=== PATIENT | male | born 1995 | race African-American/Black ===

== ENCOUNTER 2023-05-08 13:18 | Emergency (ER) | payer SELFPAY ==
--- NOTE | ~2023-05-08 | XR_ITS ---
XR chest 2V DATE: 05/08/2023 13:42 INDICATION: Palpitations TECHNIQUE: PA and lateral views COMPARISON: 10/03/2017 PA chest FINDINGS: Normal heart size. No hilar or mediastinal enlargement. No pulmonary infiltrate or consolid ation, pleural effusion or pulmonary vascular congestion or pneumothorax is detected. Included skeletal structures are unremarkable. IMPRESSION: Negative Reviewed, dictated and finalized at location L. IMPRESSION: Negative
--- NOTE | 2023-05-08 13:20 | ECG_ITS ---
Measurements Intervals [place] Rate: 71 P: 48 WA: 168 QRS: 48 QRSD: 84 T: -60 QT: 350 QTc: 382 Interpretive Statements SINUS RHYTHM LEFT VENTRICULAR HYPERTROPHY AND ST-T CHANGE BORDERLINE T WAVE ABNORMALITY- INF/LAT LEADS BORDERLINE ECG NO PREVIOUS ECG AVAILABLE FOR COMPARISON Electronically Signed On 05-08-2023 14:30:55 CDT by Florian Livingston D.O.
[2023-05-08 13:35] VITALS: BP 175/113; PULSE 88; RESP 18; TEMP 36.4; O2SAT 100
[2023-05-08 14:35] VITALS: BP 167/113; PULSE 68; RESP 14; O2SAT 100
[2023-05-08 14:59] LABS: Basophils Percent Auto 0.5 % (0.2-1.2); Eosinophils Absolute Auto 0.2 K/mm3 (0-0.3); Eosinophils Percent Auto 5.2 % (0-4.4); Hematocrit 42.7 % (42.0-52.0); Hemoglobin 14.7 g/dL (14.0-18.0); Immature Granulocyte Absolute 0.01 K/mm3 (0.00-0.031); Immature Granulocyte Percent A 0.2 % (0-0.5); Lymphocytes Absolute Auto 1.25 K/mm3 (0.9-3.2); Lymphocytes Percent Auto 30.8 % (18.3-44.2); Mean Corpuscular HGB Conc 34.4 g/dl (32-36); Mean Corpuscular Hemoglobin 29.7 pg (26-34); Mean Corpuscular Volume 86.3 fl (80-100); Mean Platelet Volume 9.3 fl (7.4-10.4); Monocytes Absolute Auto 0.4 K/mm3 (0.1-0.6); Monocytes Percent Auto 9.9 % (2.6-8.5); Neutrophils Absolute Auto 2.2 K/mm3 (1.3-6.7); Neutrophils Percent Auto 53.4 % (45.5-73.1); Platelet Count Result 257 k/mm3 (150-375); Red Blood Count 4.95 M/mm3 (4.6-6.20); Red Cell Distribution Width 12.8 % (11.5-14.5); White Blood Count 4.1 K/mm3 (4.5-10.0)
[2023-05-08 15:01] VITALS: BP 155/107; PULSE 72; RESP 20
[2023-05-08 15:10] LABS: Alanine Aminotransferase 114 U/L (6-50); Albumin Level 4.6 g/dL (3.5-5.1); Alkaline Phosphatase 68 U/L (38-126); Anion Gap 6 mmol/L (8-16); Aspartate Amino Transferase 112 U/L (17-59); Bilirubin,Total 0.8 mg/dL (0.2-1.3); Blood Urea Nitrogen 8 mg/dL (9-20); Calcium 9.6 mg/dL (8.4-10.2); Carbon Dioxide 29 mmol/L (22-30); Chloride 103 mmol/L (98-107); Estimated CRCL calculation 156 ml/min; Estimated Glomerular Filt Rate > 60; Glucose 145 mg/dL (65-110); Lipase 63 U/L (23-300); Potassium 3.6 mmol/L (3.4-5.0); Sodium 138 mmol/L (137-145)
[2023-05-08 15:21] LABS: Troponin I < 0.012 ng/mL (0.000-0.034)
[2023-05-08 15:31] LABS: Prothrombin Time 13.4 Seconds (11.1-14.7)
[2023-05-08 15:32] LABS: Partial Thromboplastin Time 29.2 Seconds (22.3-36.8)
[2023-05-08 16:01] VITALS: BP 157/110; PULSE 87; RESP 18; O2SAT 100
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
[2023-05-08] MEDS: LORazepam INJ (*CRX) 2 MG/ML VIAL 0.5 MG IV PUSH (16:25)
--- NOTE | 2023-05-08 16:29 | ECG_ITS ---
Measurements Intervals [place] Rate: 74 P: 50 W[place]: 178 QRS: 29 QRSD: 90 T: 29 QT: 348 QTc: 387 Interpretive Statements SINUS RHYTHM NONSPECIFIC T-WAVE ABNORMALITY- INF/LAT LEADS BASELINE ARTIFACT- I, II BORDERLINE ECG COMPARED TO ECG 05/08/2023 13:30:00 NO SIGNIFICANT CHANGES Electronically Signed On 05-08-2023 16:54:59 CDT by Florian Livingston D.O.
[2023-05-08 17:00] LABS: Troponin I < 0.012 ng/mL (0.000-0.034)
[2023-05-08 17:01] VITALS: BP 156/112; PULSE 78; RESP 13; O2SAT 100
[2023-05-08 18:00] VITALS: BP 180/110; PULSE 90; RESP 16; O2SAT 98
== END 2023-05-08 18:00 | disposition home or self-care (01) ==
PROVIDERS: Emergency Provider Emergency Medicine; Referring Provider Family Medicine
DX: R00.2 Palpitations (principal); I10 Essential (primary) hypertension; F17.290 Nicotine dependence, other tobacco product, uncomplicated; R94.31 Abnormal electrocardiogram [ECG] [EKG]; I51.7 Cardiomegaly
CPT/HCPCS: 36415; 71046; 80053; 83690; 84484; 85025; 85610; 85730; 93005; 96374; 99284; J2060

== ENCOUNTER 2023-07-20 15:08 | Outpatient (CLI) | payer OTHER, SELFPAY ==
[2023-07-20 16:45] LABS: Hepatitis C Virus Antibody Negative (Negative)
[2023-07-20 17:14] LABS: Chlamydia trachomatis NOT DETECTED (NOT DETECTE); Neisseria gonorrhoeae PCR NOT DETECTED (NOT DETECTE)
[2023-07-20 19:28] LABS: HIV 1/2 Ab P24 Ag 207
[2023-07-20 19:32] LABS: HIV 1/2 Ab P24 Ag Result Reactive (Negative)
[2023-07-20 19:33] LABS: HIVc Retest 1 193; HIVc Retest 2 184
[2023-07-22 04:17] LABS: Hepatitis B Core Ab Total NON-REACTIVE (NON-REACTIVE)
[2023-07-23 11:51] LABS: Rapid Plasma Reagin Reactive (NonReactive)
[2023-07-24 11:48] LABS: RPR Result REACTIVE (NON-REACTIVE)
[2023-07-24 18:58] LABS: RPR Titer 1:32
[2023-07-24 20:43] LABS: Herpes Simplex Type 1 DNA PCR NOT DETECTED; Herpes Simplex Type 2 DNA PCR NOT DETECTED
[2023-07-26 15:53] LABS: HIV 1 2 Ag Ab 4th Gen w Rflxs REPEATEDLY REACTIVE (NON-REACTIVE); HIV 1 Ab Chg Test Yes; HIV 1 Antibody POSITIVE (NEGATIVE); HIV 2 Ab Chg Test Yes; HIV 2 Antibody NEGATIVE (NEGATIVE)
== END 2023-07-20 15:09 | disposition home or self-care (01) ==
LOC: ANHLAB 15:10
PROVIDERS: PCP Clinical Nurse Specialist; Visit Provider Clinical Nurse Specialist
DX: N48.9 Disorder of penis, unspecified (principal); Z72.51 High risk heterosexual behavior; Z11.4 Encounter for screening for human immunodeficiency virus [HIV]
CPT/HCPCS: 36415; 86592; 86701; 86702; 86703; 86704; 86780; 86803; 87389; 87491; 87529; 87591; G0432

== ENCOUNTER 2024-02-16 22:15 | Emergency (ER) | payer OTHER, SELFPAY ==
[2024-02-16 22:16] VITALS: BP 136/88; PULSE 88; RESP 16; TEMP 36.7; O2SAT 98
--- NOTE | 2024-02-16 22:39 | ED_ITS ---
HPI - General Adult General Chief complaint: Unspecified Stated complaint: abx not working Time Seen by Provider: 02/16/24 22:39 Source: patient Mode of arrival: ambulatory Limitations: no limitations History of Present Illness HPI narrative: This is a 28-year-old male with PMH of HIV, recent diagnosis of syphilis who presents to the ED for antibiotics. He was seen at his internal medicine practice but they were avoiding penicillin due to national shortage. He was prescribed doxycycline twice over the last couple of months but states that it seems like the rash/lesions seemed to reappear. Otherwise states that he is doing well and has no complaints at this time. He is requesting penicillin shot today. States he is scheduled to have his CD4 count checked in February. He is taking his Biktarvy as prescribed. Related Data Home Medications ?Medication ?Instructions ?Recorded ?Confirmed ?Last Taken ?Type bictegravir 30 mg-emtricitabine tablet PO 02/04/24 02/04/24 Unknown History 120 mg-tenofovir alafenam 15 mg tablet (Biktarvy) Review of Systems Review of Systems: All systems as dictated in [facility] Surgical History Surgical History Crum teeth extracted Family History Family History Father Hypertension Depression Anxiety Mother Diabetes mellitus Grandparent Hypertension Grandparent Cerebrovascular accident Grandparent Colon cancer Grandparent Breast cancer Sibling Asthma Sibling Asthma Social History Social History Smoking status: Current every day smoker (vapes) Tobacco type: e-cigarettes/vaping Alcohol intake: current Alcohol use details: wine and shots, socially buy shots after work get wine and drink the whole bottle Substance use: current Substance use type: marijuana Other substance usage details: hasnt smoked in about 3 weeks Do You Feel Safe in your Home?: Yes Lack of Transportation: No Lack of Food: Never True Current Housing: I Have Housing Concerned About Future Housing: No Difficulty Paying Gas/Electric Bills: No Difficulty Paying for Meds: No Currently Unemployed: No Education: Associate Degree Difficulty w/ Childcare or Family Care: No Living arrangements: with roommate(s) Occupation/Education: occupation Additional occupation/education comments: [employer] Gender identity (if verbalized by the patient): Male Sexual Orientation (if Verbalized by the Patient): Lesbian, Pierre, or Homosexual Agree to blood products: Yes Exam Narrative: GENERAL: Well-appearing, well-nourished, and in no acute distress. HEAD: Normocephalic, atraumatic. EYES: PERRLA and EOMI. ENT: Nares clear, no rhinorrhea or epistaxis. Mucous membranes moist. Oropharynx without tonsillar hypertrophy exudate or other lesions. NECK: Supple. No adenopathy or masses. CHEST: No respiratory distress. Clear to auscultation. No wheezes rales or rhonchi HEART: Regular rate and rhythm. No murmur heard. Normal peripheral pulses. ABDOMEN: Soft, nontender, nondistended, normal active bowel sounds. MSK: Normal range of motion. No edema. SKIN: Warm, dry, no rash. NEURO: Alert and oriented x4. No focal deficits. PSYCH: Normal mood and affect. Course Vital Signs Vital signs: Vital Signs Temperature 98.0 F 02/16/24 22:16 Pulse Rate 88 02/16/24 22:16 Respiratory Rate 16 02/16/24 22:16 Blood Pressure 136/88 02/16/24 22:16 Pulse Oximetry 98 02/16/24 22:16 Temperature 98.0 F 02/16/24 22:16 Pulse Rate 88 02/16/24 22:16 Respiratory Rate 16 02/16/24 22:16 Blood Pressure 136/88 02/16/24 22:16 Pulse Oximetry 98 02/16/24 22:16 Medical Decision Making [facility] Narrative Medical decision making narrative: This is a 28-year-old male who is presenting for penicillin shot for previously diagnosed syphilis. Vitals are normal. He has no other complaints. Patient was given a shot of penicillin G today.. Since he is HIV positive we discussed that he will need to be seen again in 1 week for an additional injection. Patient will be discharged in stable condition. Supportive measures discussed and return precautions given. Patient is understanding and agreeable with plan for discharge with PCP follow-up. Vital Signs Vital Signs: Vital Signs Temperature 98.0 F 02/16/24 22:16 Pulse Rate 88 02/16/24 22:16 Respiratory Rate 16 02/16/24 22:16 Blood Pressure 136/88 02/16/24 22:16 Pulse Oximetry 98 02/16/24 22:16 Temperature 98.0 F 02/16/24 22:16 Pulse Rate 88 02/16/24 22:16 Respiratory Rate 16 02/16/24 22:16 Blood Pressure 136/88 02/16/24 22:16 Pulse Oximetry 98 02/16/24 22:16 Discharge Plan Discharge Clinical Impression: Acquired syphilis Patient Disposition: Home, Self-Care Condition: Stable Instructions: Antibiotic Form Additional Instructions: Your given shot of penicillin today for acquired syphilis. It is recommended to get a repeat dose of penicillin after 1 week. Please continue following up with your physicians on this issue. If you have any new or worsening symptoms please return to the ER for further evaluation. Patient Language: Armenian Prescriptions: No Action Biktarvy 30-120-15 mg tablet PO Patient Comments: Prescribed by SHERRE[facility]-Dr. Sow. Unsure of dosing. escitalopram oxalate [Lexapro] 10 mg tablet 10 mg PO DAILY Qty: 90 1RF Follow-up/Referrals: Brant Clement DO [Physician] - Time of Disposition: 23:12
[2024-02-16] MEDS: PENICILLIN G BENZATHINE 2,400,000 UNITS/4 ML SYRINGE 2400000 UNITS IM (23:25)
== END 2024-02-16 23:33 | disposition home or self-care (01) ==
PROVIDERS: Emergency Provider Physician Assistant; PCP Clinical Nurse Specialist
DX: A53.9 Syphilis, unspecified (principal); Z21 Asymptomatic human immunodeficiency virus [HIV] infection status; F17.290 Nicotine dependence, other tobacco product, uncomplicated; Z79.899 Other long term (current) drug therapy
CPT/HCPCS: 96372; 99283; J0561

== ENCOUNTER 2024-03-11 14:16 | Outpatient (CLI) | payer OTHER, SELFPAY ==
[2024-03-11 14:39] LABS: Eosinophils Absolute Auto 0.2 K/mm3 (0-0.3); Eosinophils Percent Auto 4.1 % (0-4.4); Hematocrit 43.1 % (42.0-52.0); Hemoglobin 14.6 g/dL (14.0-18.0); Immature Granulocyte Absolute 0.01 K/mm3 (0.00-0.031); Immature Granulocyte Percent A 0.2 % (0-0.5); Lymphocytes Absolute Auto 1.54 K/mm3 (0.9-3.2); Lymphocytes Percent Auto 36.9 % (18.3-44.2); Mean Corpuscular HGB Conc 33.9 g/dl (32-36); Mean Corpuscular Hemoglobin 31.1 pg (26-34); Mean Corpuscular Volume 91.9 fl (80-100); Mean Platelet Volume 8.7 fl (7.4-10.4); Monocytes Absolute Auto 0.3 K/mm3 (0.1-0.6); Monocytes Percent Auto 7.4 % (2.6-8.5); Neutrophils Absolute Auto 2.1 K/mm3 (1.3-6.7); Neutrophils Percent Auto 50.4 % (45.5-73.1); Platelet Count Result 278 k/mm3 (150-375); Red Blood Count 4.69 M/mm3 (4.6-6.20); Red Cell Distribution Width 13.2 % (11.5-14.5); White Blood Count 4.2 K/mm3 (4.5-10.0)
[2024-03-11 14:59] LABS: Alanine Aminotransferase 41 U/L (6-50); Albumin Level 4.5 g/dL (3.5-5.1); Alkaline Phosphatase 61 U/L (38-126); Anion Gap 9 mmol/L (4-12); Aspartate Amino Transferase 35 U/L (17-59); Bilirubin,Total 0.5 mg/dL (0.2-1.3); Blood Urea Nitrogen 18 mg/dL (9-20); Calcium 9.7 mg/dL (8.4-10.2); Carbon Dioxide 27 mmol/L (22-30); Chloride 101 mmol/L (98-107); Estimated Glomerular Filt Rate > 60; Glucose 161 mg/dL (65-110); Sodium 137 mmol/L (137-145)
== END 2024-03-11 14:17 | disposition home or self-care (01) ==
LOC: ANHLAB 14:19
PROVIDERS: PCP Clinical Nurse Specialist; Visit Provider Clinical Nurse Specialist
DX: E11.9 Type 2 diabetes mellitus without complications (principal); R74.01 Elevation of levels of liver transaminase levels; F41.9 Anxiety disorder, unspecified; Z21 Asymptomatic human immunodeficiency virus [HIV] infection status
CPT/HCPCS: 36415; 80053; 84443; 85025; 86341

== ENCOUNTER 2024-03-13 10:26 | Outpatient (RCR) | payer OTHER, SELFPAY | END 2024-06-11 23:59 | disposition home or self-care (01) | LOC: ANHDMC 10:26 | PROVIDERS: PCP Clinical Nurse Specialist; Visit Provider Clinical Nurse Specialist | DX: E11.9 Type 2 diabetes mellitus without complications (principal); Z71.89 Other specified counseling | CPT/HCPCS: G0108 ==

== ENCOUNTER 2024-12-03 13:23 | Outpatient (CLI) | payer OTHER, SELFPAY ==
[2024-12-03 13:52] LABS: Hematocrit 45.9 % (42.0-52.0); Hemoglobin 16.1 g/dL (14.0-18.0); Immature Granulocyte Percent A 0.2 % (0-0.5); Lymphocytes Absolute Auto 1.59 K/mm3 (0.9-3.2); Mean Corpuscular HGB Conc 35.1 g/dl (32-36); Mean Corpuscular Hemoglobin 31.3 pg (26-34); Mean Corpuscular Volume 89.3 fl (80-100); Nucleated Red Blood Cells Absolute Auto 0.000 K/mm3 (0.0-0.012); Nucleated Red Blood Cells Perc 0.0 % (0.0-0.2); Platelet Count Result 263 k/mm3 (150-375); Red Blood Count 5.14 M/mm3 (4.6-6.20); White Blood Count 4.2 K/mm3 (4.5-10.0)
[2024-12-03 14:14] LABS: Alanine Aminotransferase 37 U/L (6-50); Albumin Level 4.9 g/dL (3.5-5.1); Alkaline Phosphatase 70 U/L (38-126); Anion Gap 10 mmol/L (4-12); Aspartate Amino Transferase 43 U/L (17-59); Bilirubin,Total 0.6 mg/dL (0.2-1.3); Blood Urea Nitrogen 12 mg/dL (9-20); Calcium 9.6 mg/dL (8.4-10.2); Carbon Dioxide 24 mmol/L (22-30); Chloride 102 mmol/L (98-107); Cholesterol 289 mg/dL (0-200); Estimated Glomerular Filt Rate > 60; Glucose 286 mg/dL (65-110); HDL Direct 44 mg/dL; Potassium 4.0 mmol/L (3.4-5.0); Sodium 136 mmol/L (137-145); Total Protein 9.0 g/dL (6.3-8.2); Triglycerides 321 mg/dL (<150)
[2024-12-03 14:46] LABS: MALB Creatinine Ratio 92.5 mg/g (0-30)
[2024-12-03 14:48] LABS: Hemoglobin A1C 11.2 % (<5.7)
--- OUTSIDE RECORDS SUMMARY | 2024-12-03 15:24 | XMS_ITS | Encounter Summary ---
Author Organization [facility] Health Address [address] [place] [address] Care Team Providers Care Oracle Etl Developer Name Role Phone Unavailable Primary Care Provider Unavailabl e Prior Encounters Date Type Department Care Team Description 03/10/2019 Converted 13x Documents [facility] [address] [place] [address] <No scans attached> 03/10/2019 Converted CPS Chart Documents [facility] [address] [place] [address] <No scans attached> 03/10/2019 Converted 13x Documents [facility] [address] [place] [address] <No scans attached> 03/10/2019 Converted CPS Chart Documents [facility] [address] [place] [address] <No scans attached> Plan of Treatment Not on file Procedures Procedure Name Priority Date/Time Associated Diagnosis Comments OS CONSULT Routine 06/24/2020 2:00 AM CDT 32 REMOVAL OF IMPACTED TOOTH - COMPLETELY BONY, WITH UNUSUAL SURGICAL COMPLICATIONS Routine 06/24/2020 2:00 AM CDT 17 REMOVAL OF IMPACTED TOOTH - COMPLETELY BONY, WITH UNUSUAL SURGICAL COMPLICATIONS Routine 06/24/2020 2:00 AM CDT 16 EXTRACTION, ERUPTED TOOTH REQUIRING REMOVAL OF BONE AND/OR SECTIONING OF TOOTH Routine 06/24/2020 2:00 AM CDT 1 EXTRACTION, ERUPTED TOOTH REQUIRING REMOVAL OF BONE AND/OR SECTIONING OF TOOTH Routine 06/24/2020 2:00 AM CDT THERAPEUTIC PARENTERAL DRUGS, TWO OR MORE ADMINISTRATIONS, DIFFERENT MEDICATIONS Routine 06/24/2020 2:00 AM CDT DEEP SEDATION/GENERAL ANESTHESIA EACH SUBSEQUENT 15 MINUTE INCREMENT Routine 06/24/2020 2:00 AM CDT DEEP SEDATION/GENERAL ANESTHESIA EACH SUBSEQUENT 15 MINUTE INCREMENT Routine 06/24/2020 2:00 AM CDT DEEP SEDATION/GENERAL ANESTHESIA EACH SUBSEQUENT 15 MINUTE INCREMENT Routine 06/24/2020 2:00 AM CDT DEEP SEDATION/GENERAL ANESTHESIA FIRST 15 MINUTES Routine 06/24/2020 2:00 AM CDT OFFICE VISIT FOR OBSERVATION (DURING REGULARLY SCHEDULED HOURS) - NO OTHER SERVICES PERFORMED Routine 01/07/2020 2:00 AM OPTICIAN APPRENTICE DISPENSING 32 LIMITED ORAL EVALUATION - PROBLEM FOCUSED Routine 01/07/2020 2:00 AM OPTICIAN APPRENTICE DISPENSING 17 LIMITED ORAL EVALUATION - PROBLEM FOCUSED Routine 01/07/2020 2:00 AM OPTICIAN APPRENTICE DISPENSING 16 LIMITED ORAL EVALUATION - PROBLEM FOCUSED Routine 01/07/2020 2:00 AM OPTICIAN APPRENTICE DISPENSING 1 LIMITED ORAL EVALUATION - PROBLEM FOCUSED Routine 01/07/2020 2:00 AM OPTICIAN APPRENTICE DISPENSING PANORAMIC RADIOGRAPHIC IMAGE Routine 01/07/2020 2:00 AM OPTICIAN APPRENTICE DISPENSING Visit Diagnoses Not on file
--- OUTSIDE RECORDS SUMMARY | 2024-12-03 15:24 | XMS_ITS | Clinical Summary ---
Author Organization [facility] Health Address [address] [place] [address] Care Team Providers Care Machine Precision Etcher Name Role Phone Unavailable Primary Care Provider Unavailabl e Social History Tobacco Use Types Packs/Day Years Used Date Smoking Tobacco: Never Assessed Sex and Gender Information Value Date Recorded Sex Assigned at Not on file Legal Sex Male 9:02 PM PST Gender Identity Not on file Sexual Orientation Not on file Plan of Treatment Not on file
--- OUTSIDE RECORDS SUMMARY | 2024-12-03 15:24 | XMS_ITS | Clinical Summary ---
Author Organization [facility] [address] Address [address] [place] [address] Care Team Providers Care Machine Shop Helper Name Role Phone John Davidson MD Primary Care Provider [phone] Allergies No known active allergies Medications escitalopram (LEXAPRO) 10 mg tablet Take 1 tablet (10 mg total) by mouth daily Active Biktarvy 50-200-25 mg tablet TAKE 1 TABLET BY MOUTH EVERY DAY 30 tablet 2 09/08/2024 Active Active Problems No known active problems Immunizations Immunization Administration Dates Next Due DTP 1994,1994,1994 HPV, Quadrivalent 09/20/2009 Hep A, Ped Unspecified 09/24/2006 Hep B, Adolescent or Pediatric 1994,1994,1994 Hep B, Unspecified 1994 HiB 1994,1994,1994 IPV 1994,1994,1994 Influenza, Whole 01/04/2009 MMR 05/13/1998,10/02/1995 Meningococcal Polysaccharide (Menomune) 09/25/19 07 Tdap 09/24/2006 Social History Tobacco Use Types Packs/Day Years Used Date Smoking Tobacco: Never Assessed Personal Safety Answer Date Recorded Getting School Help Needed Not on file 07/26 Sex and Gender Information Value Date Recorded Sex Assigned at Not on file 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 Gender Identity Not on file Sexual Orientation Not on file Last Filed Vital Signs Vital Sign Reading Time Taken Comments Blood Pressure 145/84 09/29/2014 12:35 PM CDT Pulse 74 09/29/2014 12:35 PM CDT Temperature 36.4 C (97.5 F) 11/22/2023 1:51 PM CDT Respiratory Rate - - Oxygen Saturation 94% 09/29/2014 12:35 PM CDT Inhaled Oxygen Concentration - - Weight 95.3 kg (210 lb) 11/22/2023 1:51 PM CDT Height 185.4 cm (6' 1) 11/22/2023 1:51 PM CDT Body Mass Index 27.71 11/22/2023 1:51 PM CDT Plan of Treatment Health Maintenance Due Date Last Done Comments Depression Screening 1994 HLA B 5701 Typing 1994 T Spot (quantiferon gold) 1994 HIV+ Chlamydia and Gonorrhea Screening (Rectal) 2005 HIV + Chlamydia and Gonorrhe a Screening (Urine) 2007 HIV+ Chlamydia and Gonorrhea Screening (Throat) 2007 RPR Screening 2007 Varicella Vaccines (1 of 2 - 13+ 2-dose series) 2007 HPV Vaccines (2 - Risk male 3-dose series) 10/18/2009 09/20/2009 G6PD 2012 Hemoglobin A1C 2012 Hepatitis A Screening 2012 09/24/2006 Regular Well Visit/Exam 18-64 2012 Hepatitis A Vaccines (1 of 2 - Risk 2-dose series) 2013 09/24/2006 Pneumococcal vaccine <65 (1 of 2 - PCV) 2013 Zoster Vaccine (1 of 2) 2013 Proteinuria screening Urinalysis (UA) 09/30/2015 09/29/2014 DTaP/Tdap/Td Vaccine (5 - Td or Tdap) 09/24/2016 09/24/2006, 1994, 1994, Additional history exists Covid-19 Vaccine (3 - Modern a risk series) 07/28/2020 06/30/2020, 06/02/2020 Influenza Vaccine (#1) 2024 01/04/2009 Hepatitis C Screening 11/11/2024 11/12/2023 Lipid Panel 11/11/2024 11/12/2023, 09/29/2014 Hepatitis B Vaccines Completed 1994, 1994, 1994, Additional history exists Procedures Procedure Name Priority Date/Time Associated Diagnosis Comments HEPATITIS C ANTIBODY Routine 11/12/2023 3:30 PM CDT LIPID PANEL Routine 11/12/2023 3:30 PM CDT URINALYSIS AND REFLEX TO MICROSCOPIC AND CULTURE Routine 09/29/2014 5:50 PM CDT from Last 3 Months or Most Recently Relevant to Health Maintenance Results * Hepatitis C antibody (11/12/2023 3:30 PM CDT) Hep C Ab NON-REACTI VE NON-REACT YUVAL [facility] Comment: HCV antibody was non-reactive. There is no laboratory evidence of HCV infection. In most cases, no further action is required. However, if recent HCV exposure is suspected, a test for HCV RNA (test code 98360) is suggested. For additional information please refer to http://education.Physitrack/faq/IGQ15w0 (This link is being provided for informational/ educational purposes only.) 11/12/2023 3:30 PM CDT 11/12/2023 3:39 PM CDT us Mikey Whitfield MD LAB MICROBIOLOGY - G ENERAL ORDERABLES Final Result [facility] [address] [place] [address] * (ABNORMAL) Lipid panel (11/12/2023 3:30 PM CDT) Cholesterol 255(H) <200 mg/dL [facility] HDL 44 > OR = 40 mg/dL [facility] Triglycerides 716(H) <150 mg/dL [facility] Comment: If a non-fasting specimen was collected, consider repeat triglyceride testing on a fasting specimen if clinically indicated. Nicole et al. J. of Clin. Lipidol. 2015;9:129-169. There is increased risk of pancreatitis when the triglyceride concentration is very high (> or = 500 mg/dL, especially if > or = 1000 mg/dL). Nicole et al. J. of Clin. Lipidol. 2015;9:129-169. LDL mg/dL (calc) [facility] Comment: LDL cholesterol not calculated. Triglyceride levels greater than 400 mg/dL invalidate calculated LDL results. Reference range: <100 Desirable range <100 mg/dL for primary prevention; <70 mg/dL for patients with CHD or diabetic patients with > or = 2 CHD risk factors. LDL-C is now calculated using the Irish calculation, which is a validated novel method providing better accuracy than the Friedewald equation in the estimation of LDL-C. Wil MARIA et al. JANENE. 2013;310(19): 9682-1126 (http://education.Foundshopping.com/faq/EAK057) Chol/HDL ratio 5.8(H) <5.0 (calc) [facility] Non-HDL, (LDL+VLDL) 211(H) <130 mg/dL (calc) [facility] Comment: For patients with diabetes plus 1 major ASCVD risk factor, treating to a non-HDL-C goal of <100 mg/dL (LDL-C of <70 mg/dL) is considered a therapeutic option. 11/12/2023 3:30 PM CDT 11/12/2023 3:39 PM CDT Mikey Whitfield MD LAB BLOOD ORDERABLES Final Result [facility] [address] [place] [address] * (ABNORMAL) Urinalysis reflex to microscopic and culture (09/29/2014 5:50 PM CDT) Ur Collection Type CLEAN CATCH 09/29/2014 6:03 PM CDT [facility] HISTORICAL RESULTS Ur Culture Indicated? C&S INDICATED 09/29/2014 6:25 PM CDT [facility] HISTORICAL RESULTS Comment:Culture report to cheryl landon. Urine Color YELLOW YELLOW Urine Clarity HAZY CLEAR 09/29/2014 6:25 PM [facility] HISTORICAL RESULTS Urine Glucose (UA) 70(H) NORMAL mg/dL 09/29/2014 6:25 PM [facility] HISTORICAL RESULTS Urine Bilirubin NEGATIVE NEGATIVE mg/dl 09/29/2014 6:25 PM [facility] HISTORICAL RESULTS Urine Ketones NEGATIVE NEGATIVE mg/dL 09/29/2014 6:25 PM [facility] HISTORICAL RESULTS Ur Specific [place] 1.022 1.005 - 1.025 09/29/2014 6:25 PM [facility] HISTORICAL RESULTS Urine Blood NEGATIVE NEGATIVE mg/dl 09/29/2014 6:25 PM [facility] HISTORICAL RESULTS Urine pH 6.0 5.0 - 8.0 09/29/2014 6:25 PM [facility] HISTORICAL RESULTS Urine Protein 100(H) NEGATIVE mg/dL 09/29/2014 6:25 PM [facility] HISTORICAL RESULTS Urine Urobilinogen NORMAL NORMAL mg/dL 09/29/2014 6:25 PM [facility] HISTORICAL RESULTS Urine Nitrite NEGATIVE NEGATIVE 09/29/2014 6:25 PM [facility] HISTORICAL RESULTS Ur Leukocyte Esterase NEGATIVE NEGATIVE Santos/ul 09/29/2014 6:25 PM [facility] HISTORICAL RESULTS Ur Microscopic Review Indicated or Ordered 09/29/2014 6:25 PM [facility] HISTORICAL RESULTS Urine RBC 4 0 - 2 /HPF 09/29/2014 6:25 PM [facility] HISTORICAL RESULTS Urine WBC 17 0 - 2 /HPF 09/29/2014 6:25 PM [facility] HISTORICAL RESULTS Urine Mucus Marked /LPF 09/29/2014 6:25 PM [facility] HISTORICAL RESULTS Ur Squamous Epith Cells Rare /HPF 09/29/2014 6:25 PM [facility] HISTORICAL RESULTS Hyaline Casts 75 0 - 2 /LPF 09/29/2014 6:25 PM [facility] HISTORICAL RESULTS 09/29/2014 5:50 PM CDT 09/29/2014 5:58 PM CDT Narrative [facility] HISTORICAL RESULTS - 09/29/2014 6:25 PM CDT Brant Barajas MD LAB MICROBIOLOGY - GENERAL ORDERABLES Final Result [facility] HISTORICAL RESULTS from Last 3 Months or Most Recently Relevant to Health Maintenance Insurance [facility] Care Teams Machine Shop Helper Relationship Specialty Start Date End Date John Davidson MD [address] [place] [address] [place] [id number] PCP - General Internal Medicine 09/04/23
== END 2024-12-03 13:24 | disposition home or self-care (01) ==
LOC: ANHLAB 13:24
PROVIDERS: PCP Clinical Nurse Specialist; Visit Provider Clinical Nurse Specialist
DX: E11.9 Type 2 diabetes mellitus without complications (principal); R74.01 Elevation of levels of liver transaminase levels
CPT/HCPCS: 36415; 80053; 80061; 82043; 83036; 85025